=== PATIENT | male | born 1955 | race Caucasian/White ===

== ENCOUNTER 2018-04-12 11:44 | Emergency (ER) | payer OTHER ==
[~2018-04-12] VITALS: Ht 170.2 cm; Wt 82.7 kg
[~2018-04-12 11:44] MED LIST: AMLO2.5T3 PO; ASPI-496 PO; AZEL137S4 NAS; HYDR25TA6 PO; IBUP-1222 PO; KETO10TA PO; OXYC1TAB7 PO; ZOLP10TA5 PO
[2018-04-12] MEDS ORDERED: CHLO25TA PO (13:05)
[2018-04-12] MEDS ORDERED: ATOR20TA37 PO (13:05)
[2018-04-12 13:17] LABS: BASOPHILS # (AUTO) 0.05 x10^3/uL (0-0.1); BASOPHILS % (AUTO) 1 % (0-1); EOSINOPHILS # (AUTO) 0.17 x10^3/uL (0-0.4); EOSINOPHILS % (AUTO) 2 % (1-7); LYMPHOCYTES # (AUTO) 2.13 x10^3/uL (1-3.4); LYMPHOCYTES % (AUTO) 23 % (22-44); MD NO; MEAN CORPUSCULAR HEMOGLOBIN 30.9 pg (27.5-34.5); MEAN CORPUSCULAR HGB CONC 34.5 g/dL (33.2-36.2); MEAN CORPUSCULAR VOLUME 89.7 fL (81-97); MONOCYTES # (AUTO) 0.95 x10^3/uL (0.2-0.8); MONOCYTES % (AUTO) 10 % (2-9); NEUTROPHILS # (AUTO) 5.86 x10^3/uL (1.8-6.8); NEUTROPHILS % (AUTO) 64 % (42-75); PLATELET COUNT 323 x10^3/uL (130-400); RED BLOOD COUNT 5.31 x10^6/uL (4.38-5.82); RED CELL DISTRIBUTION WIDTH 13.3 % (9.4-14.8)
[2018-04-12 13:24] LABS: ALANINE AMINOTRANSFERASE 48 U/L (12-78); ALBUMIN 3.8 g/dL (3.4-5.0); ANION GAP 10 mmol/L (5-15); CALCIUM 9.2 mg/dL (8.5-10.1); CHLORIDE 102 mmol/L (98-107); CREATININE 1.01 mg/dL (0.7-1.3)
[2018-04-12 13:26] LABS: ALKALINE PHOSPHATASE 89 U/L (45-117); TOTAL PROTEIN 7.6 g/dL (6.4-8.2)
[2018-04-12] MEDS ORDERED: POTASSIUM CHLORIDE 20 MEQ TAB.ER.PRT PO ONE (14:30)
[2018-04-12] MEDS ORDERED: POTASSIUM CHLORIDE 20 MEQ TAB.ER.PRT ONE (14:49)
[2018-04-12 16:17] VITALS: BP 123/84
== END 2018-04-12 16:19 | disposition home or self-care (01) ==
LOC: ED 16:07
DX: E87.6 Hypokalemia (principal); I10 Essential (primary) hypertension
CPT/HCPCS: 36415; 80053; 85025; 93005; 99284

== ENCOUNTER 2018-05-02 09:37 | Outpatient (CLI) | payer OTHER ==
[~2018-05-02 09:37] MED LIST changes: -AMLO2.5T3 PO; +AMLO2.5T5 PO; +ATOR20TA37 PO; +CHLO25TA PO
== END 2018-05-02 23:59 | disposition home or self-care (01) ==
LOC: CFH 09:37
PROVIDERS: ATTEND Internal Medicine
DX: R41.3 Other amnesia (principal); G47.00 Insomnia, unspecified; I10 Essential (primary) hypertension; E78.2 Mixed hyperlipidemia; F51.04 Psychophysiologic insomnia; Z86.73 Personal history of transient ischemic attack (TIA), and cerebral infarction without residual deficits; Z87.891 Personal history of nicotine dependence
CPT/HCPCS: 70450; 93880

== ENCOUNTER 2019-05-23 12:00 | Emergency (ER) | payer BC ==
[~2019-05-23] VITALS: Ht 167.6 cm; Wt 82.0 kg
--- NOTE | 2019-05-23 12:20 | NUR ---
PT AMBULATORY WITH STEADY GAIT TO ROOM AT THIS TIME.
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
--- NOTE | 2019-05-23 12:59 | NUR ---
PT BACK FROM IMAGING.
[2019-05-23] MEDS ORDERED: KETOROLAC 30 MG/1 ML IM ONE (13:00)
[2019-05-23] MEDS ORDERED: KETOROLAC 60 MG/2 ML ONE ×2 (13:05)
[2019-05-23 13:27] VITALS: BP 128/85
--- NOTE | 2019-05-23 14:33 | NUR ---
Patient/Caregiver given discharge instructions and they have confirmed that they understand the instructions. Patient ambulatory with steady gait. PTLEFT WITH ALL PERSONAL BELONGINGS. PT STATES "I FEEL BETTER AFTER THE MEDICINE."
== END 2019-05-23 15:12 | disposition home or self-care (01) ==
LOC: ED 13:35
DX: S00.83XA Contusion of other part of head, initial encounter (principal); I10 Essential (primary) hypertension; X58.XXXA Exposure to other specified factors, initial encounter; Y93.9 Activity, unspecified; Y92.89 Other specified places as the place of occurrence of the external cause; Y99.8 Other external cause status
CPT/HCPCS: 71101; 93005; 96372; 99283; J1885

== ENCOUNTER 2020-03-24 11:35 | Emergency (ER) | payer BC ==
[~2020-03-24] VITALS: Ht 170.2 cm; Wt 84.3 kg
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
[2020-03-24 12:57] LABS: BASOPHILS % (AUTO) 1 % (0-1); EOSINOPHILS % (AUTO) 2 % (1-7); LYMPHOCYTES % (AUTO) 25 % (22-44); MEAN CORPUSCULAR HEMOGLOBIN 31.5 pg (27.5-34.5); MEAN CORPUSCULAR HGB CONC 34.4 g/dL (33.2-36.2); MONOCYTES % (AUTO) 11 % (2-9); NEUTROPHILS % (AUTO) 61 % (42-75); PLATELET COUNT 286 x10^3/uL (130-400); RED BLOOD COUNT 4.58 x10^6/uL (4.38-5.82); RED CELL DISTRIBUTION WIDTH 13.3 % (9.4-14.8)
[2020-03-24 12:59] LABS: MD NO
--- NOTE | 2020-03-24 13:02 | NUR ---
STATES HE IS FEELING THE NUMBNESS AND TINGLING BACK OF HEAD AT THIS TIME. AMBULATED TO BATHROOM WITHOUT ASSISTANCE, STEADY GAIT. AWAITING CT.
[2020-03-24 13:08] LABS: ALANINE AMINOTRANSFERASE 34 U/L (12-78); ALBUMIN 3.9 g/dL (3.4-5.0); ANION GAP 7 mmol/L (5-15); CALCIUM 9.1 mg/dL (8.5-10.1); CHLORIDE 109 mmol/L (98-107); CREATININE 0.94 mg/dL (0.7-1.3)
[2020-03-24 13:10] LABS: ALKALINE PHOSPHATASE 82 U/L (45-117); TOTAL PROTEIN 7.5 g/dL (6.4-8.2)
--- NOTE | 2020-03-24 13:14 | NUR ---
TASK RN: PT BACK FROM CT, RESTING ON GURCINDY IN NAD. VSS.
[2020-03-24 13:16] VITALS: BP 133/79
== END 2020-03-24 13:41 | disposition home or self-care (01) ==
LOC: ED 12:55
DX: R20.2 Paresthesia of skin (principal); I10 Essential (primary) hypertension; E87.6 Hypokalemia; Z95.0 Presence of cardiac pacemaker; Z88.2 Allergy status to sulfonamides; Z79.899 Other long term (current) drug therapy
CPT/HCPCS: 36415; 70450; 80053; 85025; 93005; 99285

== ENCOUNTER → 2020-06-04 | Outpatient (CLI) | payer BC | END | disposition home or self-care (01) | LOC: RAD 15:18 | PROVIDERS: ATTEND Family Medicine | DX: K57.32 Diverticulitis of large intestine without perforation or abscess without bleeding (principal); K40.00 Bilateral inguinal hernia, with obstruction, without gangrene, not specified as recurrent; N20.0 Calculus of kidney | CPT/HCPCS: 74176 ==

== ENCOUNTER → 2020-06-24 | Outpatient (CLI) | payer BC | END | disposition home or self-care (01) | LOC: CFH 09:53 | PROVIDERS: ATTEND Internal Medicine Cardiovascular Disease | DX: I35.8 Other nonrheumatic aortic valve disorders (principal); I49.3 Ventricular premature depolarization | CPT/HCPCS: 93306 ==